=== PATIENT | female | born 1965 ===

== ENCOUNTER 2020-11-01 21:01 | Emergency (ER) | payer BC ==
[~2020-11-01] VITALS: Ht 154.9 cm; Wt 90.7 kg
[2020-11-01 21:32] LABS: BASOPHILS ABSOLUTE AUTO 0.03 K/mm3 (0.00-0.23); BASOPHILS PERCENT AUTO 0 % (0-2); EOSINOPHILS ABSOLUTE AUTO 0.05 K/mm3 (0.00-0.68); EOSINOPHILS PERCENT AUTO 1 % (0-6); Hematocrit 40.3 % (33.0-51.0); Hemoglobin 12.9 g/dL (11.5-16.0); IMMATURE GRAN ABSOLUTE AUTO 0.02 K/mm3 (0.00-0.10); IMMATURE GRAN PERCENT AUTO 0 % (0-1); LYMPHOCYTES ABSOLUTE AUTO 2.09 K/mm3 (0.84-5.20); LYMPHOCYTES PERCENT AUTO 23 % (21-46); MONOCYTES ABSOLUTE AUTO 0.63 K/mm3 (0.16-1.47); MONOCYTES PERCENT AUTO 7 % (4-13); Mean Corpuscular HGB 26.2 pg (26.0-34.0); Mean Corpuscular Volume 82 fL (80-100); Mean Platelet Volume 9.5 fL (9.1-12.4); NEUTROPHILS ABSOLUTE AUTO 6.42 K/mm3 (1.96-9.15); NEUTROPHILS PERCENT AUTO 70 % (41-73); Platelet Count 342 K/mm3 (150-400); RDW Coefficient Variation 13.5 % (11.7-14.2); RDW Standard Deviation 40.4 fL (35.1-46.3); Red Blood Cell Count 4.93 M/mm3 (3.80-5.20); White Blood Cell Count 9.24 K/mm3 (4.00-11.30)
[2020-11-01 21:51] LABS: Alanine Aminotransfer (ALT/SGP 29 U/L (12-78); Albumin, Blood 3.6 g/dL (3.4-5.0); Albumin/Globulin Ratio 0.9 (0.8-1.8); Alk Phos 68 U/L (50-136); Anion Gap 5 mmol/L (6-16); Aspartate Aminotrans (AST/SGOT 18 U/L (12-37); Bilirubin, Total 0.4 mg/dL (0.1-1.0); Blood Urea Nitrogen 8 mg/dL (8-24); Bun/Creatinine Ratio 9.3 (12.0-20.0); CO2, Blood 28 mmol/L (21-32); Calcium, Blood 8.8 mg/dL (8.5-10.1); Chloride, Blood 109 mmol/L (98-108); Creatinine, Blood 0.86 mg/dL (0.40-1.00); Globulin, Blood 4.2 g/dL (2.2-4.0); Glomerular Filtration Rate >60 (60-); Glucose, Blood 103 mg/dL (70-99); Potassium, Blood 3.7 mmol/L (3.5-5.5); Sodium, Blood 142 mmol/L (136-145); Total Protein, Blood 7.8 g/dL (6.4-8.2)
[2020-11-01 22:46] LABS: Source, Urine Clean Catch
[2020-11-01 22:49] LABS: Bilirubin, Urine Neg (Neg); Blood, Urine Neg (Neg); Glucose Qualitative, Urine Neg (Neg); Ketones, Urine Neg (Neg); Leukocyte Esterase, Urine 1+ (Neg); Nitrite, Urine Pos (Neg); Protein, Urine 2+ (Neg); Specific Gravity, Urine 1.015 (1.003-1.022); Urobilinogen, Urine NORM (Normal)
[2020-11-01 22:56] LABS: Appearance, Urine Clear (Clear); Color, Urine Yellow (P-Yellow)
[2020-11-01 22:57] LABS: Bacteria Mod /hpf; Mucus Light (0-Heavy); Red Blood Cells, Urine 0-2 /hpf (0-2); Squamous Epithelial Cells Few /hpf (Few)
[2020-11-02] MEDS ORDERED: HYDCHL25 PO (00:08)
[2020-11-02] MEDS ORDERED: ERGO50000 (00:08)
[2020-11-02] MEDS ORDERED: FLUT.05NI (00:09)
== END 2020-11-02 00:09 | disposition home or self-care (01) ==
LOC: ER 21:01
PROVIDERS: Physician Assistant
DX: M54.5 Low back pain (principal)
CPT/HCPCS: 36415; 74176; 80053; 81001; 85025; 87086; J1885

== ENCOUNTER 2022-07-20 12:20 | Day surgery (SDC) | payer BC ==
[~2022-07-20] VITALS: Ht 154.9 cm; Wt 90.2 kg
[~2022-07-20 12:20] MED LIST: ERGO50000; FLUT.05NI; HYDCHL25 PO; PROM25 PO
[2022-07-20] MEDS ORDERED: ASPI81CH (12:50)
[2022-07-20] MEDS ORDERED: MAGNESIUM250 M1 (12:50)
[2022-07-20] MEDS ORDERED: METO50ER (12:51)
[2022-07-20] MEDS ORDERED: LOSA50 (12:51)
[2022-07-20] MEDS ORDERED: TURMERIC ROOT5000 GM (12:52)
[2022-07-20 15:47] VITALS: BP 144/76
== END 2022-07-20 15:30 | disposition home or self-care (01) ==
LOC: ORSCSDS 12:20
PROVIDERS: Student in an Organized Health Care Education/Training Program
PROC: 0DBN8ZX Excision of Sigmoid Colon, Via Natural or Artificial Opening Endoscopic, Diagnostic (ICD-10-PCS; principal; 2022-07-20 13:30)
PROC: 0DBM8ZX Excision of Descending Colon, Via Natural or Artificial Opening Endoscopic, Diagnostic (ICD-10-PCS; principal; 2022-07-20 13:30)
PROC: 0DBH8ZX Excision of Cecum, Via Natural or Artificial Opening Endoscopic, Diagnostic (ICD-10-PCS; principal; 2022-07-20 13:30)
DX: Z12.11 Encounter for screening for malignant neoplasm of colon (principal); Z86.010 Personal history of colon polyps; D12.0 Benign neoplasm of cecum; K63.5 Polyp of colon; K57.30 Diverticulosis of large intestine without perforation or abscess without bleeding; I10 Essential (primary) hypertension; E66.9 Obesity, unspecified; Z68.37 Body mass index [BMI] 37.0-37.9, adult; G47.33 Obstructive sleep apnea (adult) (pediatric); Z79.899 Other long term (current) drug therapy
CPT/HCPCS: 88305; A9270; J2704; J7120

== ENCOUNTER 2022-10-12 12:10 | Day surgery (SDC) | payer BC ==
[2022-10-12] VITALS (13 sets, daily range): BP systolic 145–190; BP diastolic 65–100
[~2022-10-12] VITALS: Ht 154.9 cm; Wt 91.1 kg
[~2022-10-12 12:10] MED LIST changes: +ASPI81CH; +ASPI81CH PO; +DRAMAMINE25 M3 PO; +FLUTICASONE; +IRON PO; +LOSA50 PO; +MAGNESIUM250 M1 PO; +METO50ER PO; +MULVITA PO; +Percocet 5-3251 EACH PO; +TURMERIC ROOT5000 GM; +TURMERIC500 M2 PO; +VITAMIN D PO; +[UNRECOGNIZED DRUG - OTHER] PO
[2022-10-12] MEDS ORDERED: IBUP600 (12:53)
[2022-10-12] MEDS ORDERED: TRAZ50 PO (12:54)
[2022-10-12] MEDS ORDERED: MEGA (12:55)
--- NOTE | 2022-10-12 13:15 | NUR ---
W/C inTO Day Surgery. Patient confirms NPO status and agrees with scheduled surgery. History, Chart, Medications and Allergies reviewed before start of procedure.Pre-Op teaching done. Pt verbalizes understanding. Patient States Post-Procedure ride home has been arranged.
--- NOTE | 2022-10-12 15:22 | NUR ---
10/12/22 1522 Marry Banks PRE MANIPULATION MEASUREMENTS: -5 DEGREES AND 70 DEGREES POST MANIPULATION MEASUREMENTS: 0 DEGREES AND 125 DEGREES
--- NOTE | 2022-10-12 18:03 | NUR ---
Patient up to Ambulate independently. Gait steady. Discharge instructions reviewed with patient. Patient verbalizes understanding. Copy given to patient to take home. Patient States Post-Procedure ride home has been arranged. Discharged via wheelchair to private car for ride home.
== END 2022-10-12 17:45 | disposition home or self-care (01) ==
LOC: ORSCMMR 12:10
PROVIDERS: Orthopaedic Surgery
PROC: 0SNCXZZ Release Right Knee Joint, External Approach (ICD-10-PCS; principal; 2022-10-12 12:30)
DX: M24.661 Ankylosis, right knee (principal); Z96.651 Presence of right artificial knee joint; I10 Essential (primary) hypertension; G47.33 Obstructive sleep apnea (adult) (pediatric); K21.9 Gastro-esophageal reflux disease without esophagitis; E66.9 Obesity, unspecified; Z68.38 Body mass index [BMI] 38.0-38.9, adult; Z79.899 Other long term (current) drug therapy
CPT/HCPCS: 73560-RT; A9270; J0690; J1100; J1170; J1885; J2250; J2405; J2704; J3010; J7120